=== PATIENT | female | born 1965 | race Two or more races ===

== ENCOUNTER 2024-09-22 20:28 | Emergency (ER) | payer MEDICAID, SELFPAY ==
[2024-09-22 20:28] VITALS: BMI 21.4
[2024-09-22 21:31] VITALS: BP 165/99; PULSE 63; RESP 20; TEMP 36.8; O2SAT 99
--- NOTE | 2024-09-22 21:39 | PD.EDANIML ---
ED Animal Bite RME/HPI General Chief Complaint: Animal Bite Stated Complaint: SPIDER BITE ON R ARM Time Seen by Provider: 09/22/24 21:31 Arrival date/time: 09/22/24 20:28 58 year old female present to emergency room with c/o of right arm possible spider bite today. uptodate with tetanus. pt decline possible poison michelle. pt report feeling a stingy prior to redness appearing. LOCATION: arm SEVERITY: Symptoms are described as being severe with limitations on activities of daily living QUALITY: Symptoms are described as being dull or achy CONTEXT: The patient is unable to identify any inciting events. DURATION/TIMING: The symptoms started approximately one day ago and have been constant this then, and have been progressive getting worse. ASSOCIATED SYMPTOMS: The patient is unable to identify any other associated symptoms. MODIFYING FACTORS: The patient is unable to identify any alleviating or aggravating symptoms. PERTINENT ROS: denies IVDU, states no immunocompromising condition, denies any penetrating trauma, no fever, no unexplained nausea or vomiting, no headache, no chest pain REVIEW OF SYSTEMS: See History of Present Illness - with the exception of those mentioned in the history of present illness, all other systems reviewed and reported as negative GENERAL: In general the patient is awake, interactive, in an emergency department gurney. HEAD/EYES/EARS/NOSE/THROAT: normo-cephalic, atraumatic, mucus membranes are moist, anicteric, palpebral conjunctiva is pink, trachea is midline. CARDIOVASCULAR: regular rate and regular rhythm, no murmurs, heart sounds are not distant, strong pulses in all four extremities that are equal and symmetric bilateral upper and lower extremities, normal capillary refill. CHEST/PULMONARY: normal chest rise and fall, good air movement, clear to auscultation bilaterally, normal inspiratory to expiratory ratios without evidence of respiratory distress. NECK: No midline/Paraspinal tenderness, no step off ROM/Strenght intact No Kernig and bruzinski sign. No trauma ABDOMEN: soft, not tender, no masses appreciated BACK: normal range of motion without pain. NEUROLOGICAL: cranio-facial features are symmetric, moves all four extremities equally without obvious limitations or weakness. EXTREMITY: right upper proximal wrist erythema and mild swelling noted. no tenderness to palpation over the long bones or large joints of the bilateral lower extremities, no joint swelling, no joint erythema, no signs of trauma, no unilateral leg swelling and no peripheral edema. SKIN: warm, dry, well-perfused, no jaundice, no telangiectasias or petechia. PSYCH: calm, cooperative, no evidence of psychosis or agitation Related Data Previous Rx's ?Medication ?Instructions ?Recorded clindamycin HCl 300 mg capsule 300 mg PO QID 10 days #40 caps 09/22/24 Allergies Allergy/AdvReac Type Severity Reaction Status Date / Time No Known Allergies Allergy Verified 09/22/24 20:31 Course Course Course Narrative: Patient is admitted to Emergency Department and evaluated. Patient appears well and is non-toxic and well hydrated. Patient appears to have an infected wound cellulitis. Instructed to apply warm compresses. Will start patient on outpatient abx. Instructed to return in 2 days for recheck. first dose of clindmaycin given prior to discharge Quality Measures none Orders Category Date Time Status Clindamycin [Cleocin] Med 09/22/24 21:38 Discontinued 300 mg PO X1 ONE Ibuprofen Tab [Motrin Tab] Med 09/22/24 21:38 Discontinued 600 mg PO X1 ONE Vital Signs Vital signs: Vital Signs Temperature 98.3 F 09/22/24 21:31 Pulse Rate 63 09/22/24 21:31 Respiratory Rate 20 09/22/24 21:31 Blood Pressure 165/99 H 09/22/24 21:31 Pulse Oximetry (%) 99 09/22/24 21:31 Oxygen Delivery Method Room Air 09/22/24 21:31 Animal Bite Patient data External records reviewed:: [facility] previous records Clinical information provided by:: patient and family Social determinants that could affect healthcare access:: none Patient has the following chronic illnesses:: as stated in chart How is presenting disease/condition affected by chronic disease/condition?: uneffected by Evaluation data The following diagnostics were reviewed and interpreted by me:: other (specify) (na ) Lab and/or radiology exams considered but not ordered:: na Interpretation Summary: na Medications / Prescriptions Medications or Prescriptions considered but not ordered:: na Medication administrations:: Medication Administration History Discontinued Medications Clindamycin HCl (Clindamycin 150 Mg Capsule) 300 mg PO X1 ONE Stop: 09/22/24 21:39 Ibuprofen (Ibuprofen Tab 600 Mg Tablet) 600 mg PO X1 ONE Stop: 09/22/24 21:39 na Consultations Consultation(s) initiated? (list below): No Diagnosis Most likely diagnosis given after review of the tests above:: cellulitis Admission Indicated Admission indicated?: not indicated Admission Request Was there a request for admission?: No Disposition Plan Disposition Plan: Discharge Discharge Attestation Discharge Attestation: The patient and all family members were given an opportunity to ask questions and understood the discharge instructions. Discharge instructions specifically effects, indications for sooner follow up or return to the emergency department, and the expected course of current diagnosis. Patient condition: Stable Discharge Plan Plan Patient Disposition: HOME (Self Care) Health Concerns: Follow with PMD as directed Take tylenol or motrin as need Return to ED if sx worsen Prescriptions/Referrals Prescriptions/Med Rec: New clindamycin HCl 300 mg capsule 300 mg PO QID 10 Days Qty: 40 0RF Problem List Clinical Impression: Cellulitis Patient/Caregiver Discharge Instructions Education Materials: ED Cellulitis Print Language: Syriac Stand Alone Forms: Sophia Award Info., Patient Portal Info Letter
[2024-09-22] MEDS: CLINDAMYCIN 150 MG CAPSULE 300 MG PO (22:03)
[2024-09-22] MEDS: IBUPROFEN TAB 600 MG TABLET PO (22:03)
== END 2024-09-22 22:39 | disposition home or self-care (01) ==
PROVIDERS: Emergency Provider Emergency Medicine
DX: L03.113 Cellulitis of right upper limb (principal)
CPT/HCPCS: 99282; A9270